=== PATIENT | male | born 1990 | race Caucasian/White ===

== ENCOUNTER 2018-04-15 13:07 | Emergency (ER) | payer OTHER ==
[~2018-04-15] VITALS: Ht 170.2 cm; Wt 80.0 kg
[2018-04-15 15:18] LABS: HEMATOCRIT 44.9 % (39.0-50.0); HEMOGLOBIN 14.9 g/dl (14.0-18.0); IMMATURE GRANULOCYTES 0.4 % (0.0-5.0); MEAN CELL VOLUME 97.4 fL CALC (80.0-100.0); MEAN CORPUSCULAR HGB 32.3 pG CALC (26.0-32.0); MEAN CORPUSCULAR HGB CONC 33.2 g/L CALC (32.0-36.0); NEUT# 9.04 thou/uL (1.82-7.42); RED BLOOD COUNT 4.61 mill/uL (4.70-6.10); RED CELL DISTRI WIDTH 12.8 % (11.5-15.5)
[2018-04-15 15:36] LABS: BARBITURATES NEGATIVE (NEGATIVE); COCAINE NEGATIVE (NEGATIVE); METHADONE NEGATIVE (NEGATIVE); OXCYCODONE NEGATIVE (NEGATIVE); TETRAHYDROCANNABIONOL POSITIVE (NEGATIVE); TRICYLIC ANTIDEPRESSANTS NEGATIVE (NEGATIVE)
[2018-04-15 15:49] LABS: ALKALINE PHOSPHATASE 86 u/l (38-126); ANION GAP 14 (6-22 (CALC)); BILIRUBIN, TOTAL 0.7 mg/dL (0.0-1.4); BUN 10 mg/dL (9-20); BUN/CREATININE RATIO 10 (12-20 (CALC)); CARBON DIOXIDE 29 mmol/l (22-30); CHLORIDE 104 mmol/l (95-108); ETHYL ALCOHOL 0 mg/dl (0-30); GFR > 60 ML/MIN (>=60 (CALC)); GFR FOR AFR.AMER. > 60 ML/MIN (>=60 (CALC)); POTASSIUM 3.8 mmol/l (3.5-5.1); SGOT/AST 40 u/l (17-59); SGPT/ALT 42 u/l (21-72); SODIUM 143 mmol/l (137-146); TOTAL PROTEIN 6.9 g/dL (6.3-8.2)
[2018-04-15] MEDS ORDERED: TORADOL PO (16:08)
[2018-04-15] MEDS ORDERED: FLEXERIL PO (16:08)
[2018-04-15 16:47] VITALS: BP 123/79
[2018-04-15] MEDS ORDERED: no home meds (16:49)
== END 2018-04-15 16:47 | disposition home or self-care (01) | DRG 605 ==
LOC: ED 13:07
PROVIDERS: Emergency Medicine
DX: S50.01XA Contusion of right elbow, initial encounter (principal); S00.93XA Contusion of unspecified part of head, initial encounter; S70.11XA Contusion of right thigh, initial encounter; S80.11XA Contusion of right lower leg, initial encounter; F17.210 Nicotine dependence, cigarettes, uncomplicated; V47.5XXA Car driver injured in collision with fixed or stationary object in traffic accident, initial encounter